=== PATIENT | female | born 2000 | race African-American/Black ===

== ENCOUNTER 2020-02-04 22:43 | Emergency (ER) | payer OTHER, BC ==
[~2020-02-04] VITALS: Ht 165.1 cm; Wt 87.1 kg
[2020-02-04] MEDS ORDERED: ASA81BEC PO (22:47)
[2020-02-05 00:01] LABS: URINE BILIRUBIN 1+ (Negative); URINE BLOOD 3+ (Negative); URINE CLARITY CLEAR; URINE COLOR YELLOW; URINE GLUCOSE-RANDOM* NEGATIVE (Negative); URINE KETONES 1+ (Negative); URINE LEUKOCYTES-REFLEX NEGATIVE (Negative); URINE NITRITE-REFLEX NEGATIVE (Negative); URINE PROTEIN (DIPSTICK) 2+ (Negative); URINE SPECIFIC GRAVITY >= 1.030 (1.005-1.035); URINE UROBILINOGEN 0.2 E.U./dl (0.2-1.0)
[2020-02-05 00:19] LABS: BACTERIA-REFLEX 1-9 Few /HPF (None Seen); CASTS None Seen /LPF (None Seen); CRYSTALS None Seen /LPF (None Seen); MUCUS 4-6 Moderate strn/LPF (None Seen); SQUAMOUS 4-10 Moderate /LPF (0-3); URINE WBC-REFLEX 0-5 Rare /HPF (0-5)
[2020-02-05 00:48] VITALS: BP 115/86
[2020-02-05] MEDS ORDERED: ONDANSETRON ODT8 MG PO (00:57)
== END 2020-02-05 01:19 | disposition home or self-care (01) ==
LOC: ER 22:43
PROVIDERS: Emergency Medicine
DX: R11.2 Nausea with vomiting, unspecified (principal); R19.7 Diarrhea, unspecified; Z87.74 Personal history of (corrected) congenital malformations of heart and circulatory system; Z79.82 Long term (current) use of aspirin

== ENCOUNTER 2020-02-06 21:10 | Emergency (ER) | payer OTHER, BC ==
[~2020-02-06] VITALS: Ht 165.1 cm; Wt 86.2 kg
[~2020-02-06 21:10] MED LIST: ASA81BEC PO; ONDANSETRON ODT8 MG PO
[2020-02-06 22:13] LABS: ABSOLUTE NEUTROPHILS 4.8 thou/uL (1.4-8.2); BASOPHILS 1.2 % (0.0-2.0); EOSINOPHILS 5.5 % (0.0-3.0); HEMATOCRIT 45.6 % (37.0-47.0); HEMOGLOBIN 15.3 gm/dL (12.0-15.0); LYMPHOCYTES 20.4 % (24.0-44.0); MCH 29.7 pg (26.0-34.0); MCHC 33.5 g/dL (28.0-37.0); MCV 88.7 fL (80.0-100.0); MONOCYTES 5.7 % (1.0-8.0); PLATELET COUNT 269 thou/uL (150-400); POLYS 67.2 % (36.0-66.0); RBC 5.15 mil/uL (4.20-5.00); RDW 12.8 % (10.5-14.5); WBC 7.1 thou/uL (4.0-11.0)
[2020-02-06 22:19] LABS: CALCIUM 9.4 mg/dL (8.5-10.1); CREATININE 1.1 mg/dL (0.6-1.0); POTASSIUM 3.5 mmol/L (3.5-5.1)
[2020-02-06 22:25] LABS: ALBUMIN 4.6 g/dL (3.4-5.0); DIRECT BILIRUBIN 0.2 mg/dL (<0.1-0.2); TOTAL BILIRUBIN 0.7 mg/dL (0.2-1.0); TOTAL PROTEIN 8.5 g/dL (6.4-8.2)
[2020-02-07] MEDS ORDERED: BENTYL 20 MG TA20 M1 PO (00:27)
[2020-02-07 00:37] VITALS: BP 121/60
== END 2020-02-07 00:51 | disposition home or self-care (01) ==
LOC: ER 21:10
PROVIDERS: Emergency Medicine
DX: R11.2 Nausea with vomiting, unspecified (principal); Z79.82 Long term (current) use of aspirin; Z79.899 Other long term (current) drug therapy

== ENCOUNTER 2020-08-04 16:59 | Emergency (ER) | payer OTHER, BC ==
[~2020-08-04] VITALS: Ht 165.1 cm; Wt 74.4 kg
[~2020-08-04 16:59] MED LIST changes: +BENTYL 20 MG TA20 M1 PO
[2020-08-04 17:26] LABS: URINE BLOOD 1+ (Negative); URINE CLARITY CLEAR; URINE COLOR YELLOW; URINE GLUCOSE-RANDOM* NEGATIVE (Negative); URINE KETONES 2+ (Negative); URINE NITRITE-REFLEX NEGATIVE (Negative); URINE PROTEIN (DIPSTICK) 2+ (Negative); URINE SPECIFIC GRAVITY >= 1.030 (1.005-1.035)
[2020-08-04 17:34] LABS: ABSOLUTE NEUTROPHILS 5.1 thou/uL (1.4-8.2); BASOPHILS 1.1 % (0.0-2.0); EOSINOPHILS 8.6 % (0.0-3.0); HEMATOCRIT 48.8 % (37.0-47.0); HEMOGLOBIN 16.2 gm/dL (12.0-15.0); LYMPHOCYTES 23.2 % (24.0-44.0); MCH 29.3 pg (26.0-34.0); MCHC 33.1 g/dL (28.0-37.0); MCV 88.5 fL (80.0-100.0); MONOCYTES 7.5 % (1.0-8.0); PLATELET COUNT 291 thou/uL (150-400); POLYS 59.6 % (36.0-66.0); RBC 5.51 mil/uL (4.20-5.00); RDW 12.4 % (10.5-14.5); WBC 8.6 thou/uL (4.0-11.0)
[2020-08-04 17:41] LABS: URINE LEUKOCYTES-REFLEX 1+ (Negative)
[2020-08-04 17:44] LABS: ICTOTEST (BILI CONFIRMATORY) Negative (Negative); URINE BILIRUBIN NEGATIVE (Negative)
[2020-08-04 17:48] LABS: SQUAMOUS 4-10 Moderate /LPF (0-3)
[2020-08-04 17:49] LABS: ALBUMIN 4.8 g/dL (3.4-5.0); CALCIUM 9.8 mg/dL (8.5-10.1); POTASSIUM 3.4 mmol/L (3.5-5.1); TOTAL BILIRUBIN 0.9 mg/dL (0.2-1.0); TOTAL PROTEIN 8.3 g/dL (6.4-8.2)
[2020-08-04 17:50] LABS: CASTS None Seen /LPF (None Seen); MUCUS 0-3 Light strn/LPF (None Seen)
[2020-08-04 17:51] LABS: CRYSTALS None Seen /LPF (None Seen); URINE RBC 3-10 Few /HPF (0-2)
[2020-08-04] MEDS ORDERED: DOXYCYCLINE 10100 MG PO (19:39)
[2020-08-04] MEDS ORDERED: FLAGYL500 M1 PO (19:39)
[2020-08-04] MEDS ORDERED: LEVSIN0.125 MG PO (19:39)
[2020-08-04] MEDS ORDERED: ZOFRAN ODT4 MG PO (19:39)
[2020-08-04] MEDS ORDERED: NEXIUM40 MG PO (19:41)
[2020-08-04 20:01] VITALS: BP 124/85
== END 2020-08-04 20:07 | disposition home or self-care (01) ==
LOC: ER 16:59
PROVIDERS: Emergency Medicine
DX: N39.0 Urinary tract infection, site not specified (principal); R11.10 Vomiting, unspecified; N76.0 Acute vaginitis; B96.89 Other specified bacterial agents as the cause of diseases classified elsewhere; A59.01 Trichomonal vulvovaginitis; Z79.82 Long term (current) use of aspirin; Z79.899 Other long term (current) drug therapy

== ENCOUNTER 2020-08-05 21:15 | Emergency (ER) | payer OTHER, BC ==
[~2020-08-05] VITALS: Ht 165.1 cm; Wt 74.4 kg
[~2020-08-05 21:15] MED LIST changes: +DOXYCYCLINE 10100 MG PO; +FLAGYL500 M1 PO; +LEVSIN0.125 MG PO; +NEXIUM40 MG PO; +ZOFRAN ODT4 MG PO
[2020-08-05 22:46] LABS: ABSOLUTE NEUTROPHILS 4.8 thou/uL (1.4-8.2); BASOPHILS 1.2 % (0.0-2.0); EOSINOPHILS 8.2 % (0.0-3.0); HEMATOCRIT 47.8 % (37.0-47.0); HEMOGLOBIN 15.8 gm/dL (12.0-15.0); LYMPHOCYTES 19.3 % (24.0-44.0); MCV 87.8 fL (80.0-100.0); MONOCYTES 7.9 % (1.0-8.0); PLATELET COUNT 256 thou/uL (150-400); POLYS 63.4 % (36.0-66.0); RBC 5.44 mil/uL (4.20-5.00); RDW 12.1 % (10.5-14.5); WBC 7.6 thou/uL (4.0-11.0)
[2020-08-05 22:58] LABS: CALCIUM 9.8 mg/dL (8.5-10.1); POTASSIUM 3.3 mmol/L (3.5-5.1)
[2020-08-05 23:03] LABS: ALBUMIN 4.8 g/dL (3.4-5.0); TOTAL BILIRUBIN 1.2 mg/dL (0.2-1.0)
[2020-08-05 23:44] LABS: URINE BILIRUBIN NEGATIVE (Negative); URINE BLOOD 1+ (Negative); URINE CLARITY CLEAR; URINE COLOR YELLOW; URINE GLUCOSE-RANDOM* NEGATIVE (Negative); URINE KETONES 2+ (Negative); URINE LEUKOCYTES-REFLEX TRACE (Negative); URINE NITRITE-REFLEX NEGATIVE (Negative); URINE PROTEIN (DIPSTICK) 1+ (Negative); URINE SPECIFIC GRAVITY <= 1.005 (1.005-1.035)
[2020-08-05 23:52] LABS: AMP/METHAMP Negative (Negative); BARBITURATES Negative (Negative); BENZODIAZEPINES Negative (Negative); COCAINE Negative (Negative); METHADONE Negative (Negative); OPIATES Negative (Negative); PCP Negative (Negative)
[2020-08-06 00:06] LABS: BACTERIA-REFLEX 1-9 Few /HPF (None Seen); CASTS None Seen /LPF (None Seen); CRYSTALS None Seen /LPF (None Seen); MUCUS 0-3 Light strn/LPF (None Seen); SQUAMOUS 4-10 Moderate /LPF (0-3); URINE RBC 3-10 Few /HPF (0-2); URINE WBC-REFLEX 0-5 Rare /HPF (0-5)
[2020-08-06] MEDS ORDERED: HALOPERIDOL 2 MG2 MG PO (00:16)
[2020-08-06 00:26] VITALS: BP 92/60
== END 2020-08-06 00:30 | disposition home or self-care (01) ==
LOC: ER 21:15
PROVIDERS: Emergency Medicine
DX: R16.0 Hepatomegaly, not elsewhere classified (principal); R11.2 Nausea with vomiting, unspecified; Z79.82 Long term (current) use of aspirin; Z79.899 Other long term (current) drug therapy

== ENCOUNTER 2020-09-07 20:23 | Emergency (ER) | payer OTHER, BC ==
[~2020-09-07] VITALS: Ht 165.1 cm; Wt 70.3 kg
[~2020-09-07 20:23] MED LIST changes: +HALOPERIDOL 2 MG2 MG PO
[2020-09-07 20:42] LABS: URINE BLOOD TRACE (Negative); URINE CLARITY SL CLOUDY; URINE COLOR YELLOW; URINE GLUCOSE-RANDOM* NEGATIVE (Negative); URINE KETONES 3+ (Negative); URINE LEUKOCYTES-REFLEX NEGATIVE (Negative); URINE NITRITE-REFLEX NEGATIVE (Negative); URINE PROTEIN (DIPSTICK) 3+ (Negative); URINE SPECIFIC GRAVITY >= 1.030 (1.005-1.035)
[2020-09-07 20:47] LABS: ICTOTEST (BILI CONFIRMATORY) Negative (Negative); URINE BILIRUBIN NEGATIVE (Negative)
[2020-09-07 20:52] LABS: CASTS None Seen /LPF (None Seen); MUCUS >6 Heavy strn/LPF (None Seen); SQUAMOUS >10 Many /LPF (0-3); URINE WBC-REFLEX 6-15 Few /HPF (0-5)
[2020-09-07 20:53] LABS: CRYSTALS None Seen /LPF (None Seen); URINE RBC 3-10 Few /HPF (0-2)
[2020-09-07] MEDS ORDERED: PROTONIX40 M2 PO (21:00)
[2020-09-07 21:10] LABS: ANION GAP 19 mmol/L (7-16); BUN 18 mg/dL (7-18); CHLORIDE 99 mmol/L (98-107); CO2 21 mmol/L (21-32); GLUCOSE 93 mg/dL (74-106); POTASSIUM 3.4 mmol/L (3.5-5.1); SODIUM 139 mmol/L (136-145)
[2020-09-07 21:20] LABS: ALBUMIN 4.8 g/dL (3.4-5.0); LIPASE 92 U/L (73-393); SGOT 15 U/L (15-37); SGPT 19 U/L (14-59); TOTAL BILIRUBIN 0.8 mg/dL (0.2-1.0); TOTAL PROTEIN 8.7 g/dL (6.4-8.2); TROPONIN-I <0.06 ng/mL (<0.06)
[2020-09-07 22:49] LABS: ABSOLUTE NEUTROPHILS 3.2 thou/uL (1.4-8.2); EOSINOPHILS 5.4 % (0.0-3.0); HEMATOCRIT 46.9 % (37.0-47.0); HEMOGLOBIN 15.9 gm/dL (12.0-15.0); LYMPHOCYTES 31.7 % (24.0-44.0); MCH 30.1 pg (26.0-34.0); MCV 88.7 fL (80.0-100.0); PLATELET COUNT 376 thou/uL (150-400); POLYS 55.9 % (36.0-66.0); RBC 5.29 mil/uL (4.20-5.00); RDW 12.8 % (10.5-14.5); WBC 5.8 thou/uL (4.0-11.0)
[2020-09-07] MEDS ORDERED: ZOFRAN ODT4 MG PO (23:04)
[2020-09-07 23:18] VITALS: BP 11/72
--- NOTE | 2020-09-08 07:50 | EKG ---
[place] [address] [facility] [place] [employer] [place] [address] ELECTROCARDIOGRAM REPORT Name: JACK CISNEROS Room #: [facility]#: [id number] Admission: 09/07/20 Attend Phys: Discharge: 09/07/20 Date of : [birth year] Report #: [id number] [facility] ED Test Date: 2020-09-07 Test Time: 20:39:07 Pat Name: JACK CISNEROS Department: Room: Gender: F Learning Development Specialist: LIZ : 2000 Requested By: Julio Cesar Nix Order Number: [id number] MD: Zhao Grady Measurements Intervals [place] Rate: 94 P: 17 CA: 144 QRS: 209 QRSD: 110 T: 60 QT: 392 QTc: 491 Interpretive Statements Sinus rhythm RVH with secondary repolarization abnrm Borderline prolonged QT interval No previous ECG available for comparison Electronically Signed On 09-08-2020 7:50:39 CDT by Zhao Grady [email or web address] <ELECTRONICALLY SIGNED> By: Zhao Grady MD, [facility] 09/08/20 0750 38 38 Zhao Grady MD, FACC /EPI
== END 2020-09-07 23:19 | disposition home or self-care (01) ==
LOC: ER 20:23
PROVIDERS: Emergency Medicine
DX: R10.84 Generalized abdominal pain (principal); Z79.82 Long term (current) use of aspirin; Z79.899 Other long term (current) drug therapy